=== PATIENT | male | born 1990 | race Two or more races ===

== ENCOUNTER 2024-11-26 14:47 | Emergency (ER) | payer MEDICAID, OTHER ==
[~2024-11-26] VITALS: Ht 185.4 cm; Wt 66.7 kg
[2024-11-26 15:44] VITALS: BP 135/89; PULSE 101; RESP 17; TEMP 98.9; O2SAT 99
[2024-11-26] MEDS: TETRACAINE HCL 0.5% OPTH(EYE) SOLN 4ML LEFTEYE ONE (16:37)
[2024-11-26] MEDS: FLUORESCEIN SOD OPTH TEST STRIP LEFTEYE ONE (16:38)
[2024-11-26] MEDS: TETANUS-DIPTH-ACEL PERTUSSIS 0.5ML SYR Tdap IM ONE (16:58)
[2024-11-26] MEDS: LACTATED RINGER'S 1,000 ML IV ONE (16:58)
[2024-11-26] MEDS ORDERED: ERY05OO OP (17:22)
--- NOTE | 2024-11-26 17:22 | ED.PDOC ---
Eye-HPI HPI Comments Pleasant 34-year-old male with a MHx that presents for a foreign body sensation to the left eye. 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 friend was welding and patient did not have protective goggles Denies vision changes Denies eye discharge Denies hearing changes, nausea, vomiting Denies eye pain with movement, eye pain in general, difficulty keeping eye open, sensitivity to light Chief Complaint: Eye Problem Time Seen by MD: 15:27 Primary Care Provider: NONE Reviewed Notes: Nurses Notes, Medications, Allergies Allergies: Coded Allergies: NO KNOWN ALLERGIES (Unverified , 11/26/24) Home Meds Active Scripts Erythromycin (Erythromycin) 5 Mg/Gm Oin, 1 APPLIC OP TID for 10 Days, #3.5 GRAMS 0 Refills Prov:TRAMAINE PHILIPPE GIS MAPPING TECHNICIAN 11/26/24 Information Source: Patient Mode of Arrival: Ambulatory Past Medical History PAST MEDICAL HISTORY: Denies Surgical History: Denies all surgeries Family History Family History: Reviewed,noncontributory to illness Social History Smoker: Non-Smoker Alcohol: Denies ETOH Use Drugs: Denies Drug Use All Other Systems: Reviewed and Negative (Per HPI) Physical Exam General Appearance: No Apparent Distress, Normal HEENT: Normal ENT Inspection, PERRL/EOMI (Left eye: No gross abnormality to the orbital region. No step-offs on palpation. Noticeable conjunctival injection. No visible foreign body appreciated. Extraocular movements intact. No pain with lateral gazes. No vision changes. No signs of hyphema.), Pharynx Normal, TMs Normal Neck: Full Range of Motion, Non-Tender, Normal, Normal Inspection Respiratory: Chest Non-Tender, Lungs Clear, No Accessory Muscle Use, No Resp iratory Distress, Normal Breath Sounds Cardiovascular: No Edema, No JVD, No Murmur, No Gallop, Normal Peripheral Pulses, Regular Rate/Rhythm Breast Exam: Deferred Gastrointestinal: No Organomegaly, Non Tender, No Pulsatile Mass, Normal Bowel Sounds, Soft Genitalia: Deferred Pelvic: Deferred Rectal: Deferred Extremities: No calf tenderness, Normal capillary refill, Normal inspection, Normal range of motion, Non-tender, No pedal edema Musculoskeletal : Apperance: Normal Neurologic: Alert, federal appellate law clerk II-XII nml as Tested, No Motor Deficits, Normal Affect, Normal Mood, No Sensory Deficits Cerebellar Function: Normal Reflexes: Normal Skin: Dry, Normal Color, Warm Lymphatic: No Adenopathy Was a procedure done? Was a procedure done?: Yes Sedation Sedation?: No EENT DIFF Eye: Viral, Corneal Abrasion, Foreign Body-Corneal, Glaucoma, Other X-Ray, Labs, Meds, VS Vital Signs Date Time Temp Pulse Resp B/P (MAP) Pulse Ox O2 Delivery O2 Flow Rate FiO2 11/26/24 15:44 98.7 101 17 135/89 (104) 99 98.7 11/26/24 15:44 98.9 101 17 135/89 (104) 99 98.9 11/26/24 15:44 101 17 99 Room Air Current Medications Medications (Trade) Dose Ordered Sig/Regina Route Start Time Stop Time Status Last Admin Tetracaine HCl (Tetracaine 0.5% Opth Soln) 1 drop ONCE ONCE LEFTEYE 11/26/24 16:30 11/26/24 16:31 DC 11/26/24 16:37 Fluorescein Sodium (Ful-Jo Ann) 1 mg ONCE ONCE LEFTEYE 11/26/24 16:30 11/26/24 16:31 DC 11/26/24 16:38 Diphtheria/ Tetanus/Acell Pertussis (Boostrix T-Dap) 0.5 ml ONCE ONCE IM 11/26/24 16:30 11/26/24 16:31 DC 11/26/24 16:58 Lactated Ringer's 1,000 ml @ 1,000 mls/hr Q1H ONCE IV 11/26/24 16:30 11/26/24 17:29 DC 11/26/24 16:58 X-Ray, Labs, Meds, VS Comment Differential diagnosis considered includes: corneal abrasion, uveitis, foreign body, retinal detachment unlikey given age and no history flashes nor floaters. Patient alert, vss, well appearing. PERRLA, EOMi, visual acuity not affected. Patient appears to have an uncomplicated corneal abrasion. No evidence of foreign body, globe rupture, iritis, conjunctivitis or any other process requiring immediate medical or surgical intervention at this time. Visual acuity OD: 20/40, OS: 20/40, OU: 20/40 IOP: 9 Left eye Slit lamp exam with evidence of corneal abrasion Patient had good improvement with tetracaine Will prescribe topical erythromycin. Will instruct patient to avoid wearing their contacts and will refer for 24 hour follow up with an hair and makeup designer. Tetanus updated Time of 1ST Reevaluation: 17:00 Reevaluation 1ST: Improved Patient Education/Counseling: Diagnosis, Treatment Family Education/Counseling: Diagnosis, Treatment Departure 1 Departure Time of Disposition: 17:19 Impression: Primary Impression: Corneal abrasion Qualified Codes: S05.01XA - Injury of conjunctiva and corneal abrasion without foreign body, right eye, initial encounter Disposition: HOME / SELF CARE / HOMELESS Condition: Stable e-Prescriptions Erythromycin (Erythromycin) 5 Mg/Gm Oin 1 APPLIC OP TID for 10 Days, #3.5 GRAMS 0 Refills Prov: TRAMAINE PHILIPPE GIS MAPPING TECHNICIAN 11/26/24 Critical Care Note Critical Care Time?: No Stability Stability form required: No Heart Score Heart Score: Heart Score Response (Comments) Value History N/A 0 EKG N/A 0 Age N/A 0 Risk Factors N/A 0 Troponin N/A 0 Total 0 TRAMAINE PHILIPPE GIS MAPPING TECHNICIAN November 26, 2024 17:22
[2024-11-26] MEDS ORDERED: LIDOCAINE 2% JELLY 11ml (GLYDO) ONE (22:47)
== END 2024-11-26 17:25 | disposition home or self-care (01) ==
LOC: ER 14:54
DX: S05.01XA Injury of conjunctiva and corneal abrasion without foreign body, right eye, initial encounter (principal); Z79.899 Other long term (current) drug therapy; X58.XXXA Exposure to other specified factors, initial encounter; Y93.89 Activity, other specified; Y92.89 Other specified places as the place of occurrence of the external cause; Y99.8 Other external cause status
CPT/HCPCS: 90471; 90715